=== PATIENT | female | born 1955 | race Caucasian/White ===

== ENCOUNTER 2017-12-25 09:43 | Observation (INO) ==
[2017-12-25] MEDS ORDERED: 0.9 % Sodium Chloride 1,000 ML IVC ONE ×2 (09:52→10:13)
--- NOTE | 2017-12-25 10:06 | Emergency Department Note ---
Disposition Clinical Impression: Atrial fibrillation with RVR Disposition: Admitted As Inpatient Condition: Fair Time of Disposition: 20:46 Arrhythmia/Palpitations HPI - General Stated Complaint: A-Fib Time Seen by Provider: 12/25/17 09:46 Source: patient Limitations: no limitations Nursing Notes Reviewed: Yes Vital Signs Reviewed: Yes - History of Present Illness HPI Narrative: Mrs. Nuno, a 62yo female, presents from work for evaluation of palpitations. Onset 2-3 months ago. Described as intermittent, of varying duration, nothing noted to incite or resolve them. Symptomatic as "feels like my heart is going to beat out of my chest." No associated chest pain, thoracic pain, dyspnea, light headedness, weakness, numbness, tingling. Patient was previously on metoprolol, unknown "low dose." She was then transitioned to cardizem 120mg, now cardizem 240mg (started 2d ago). Outpatient stress testing was attempted yesterday and discontinued prior to the start due to A. Fib RVR. PMH: GERD, A.Fib ROS: Pos: as above Neg: fever, chills, nausea, vomiting chest pain, abdominal pain, unusual back pain, weakness, numbness, tingling, vertigo, changes in bowel or bladder - Related Data Home Medications Medication Instructions Recorded Confirmed Alendronate Sodium [Alendronate 1 tab PO QWEEK 12/25/17 12/25/17 Sodium] Diltiazem HCl [Diltiazem ER] 240 mg PO DAILY 12/25/17 12/25/17 Omeprazole [PriLOSEC] 40 mg PO DAILY 12/25/17 12/25/17 Allergies Allergy/AdvReac Type Severity Reaction Status Date / Time No Known Allergies Allergy Verified 07/29/15 11:48 All systems ED: reviewed and negative except as stated. 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 HEENT: No facial asymmetry. Head is normocephalic and atraumatic. PERRLA, EOMI. Nasal turbinates moist and pink. Posterior pharynx without exudates or cobblestoning. Trachea midline, no palpable thyroid nodules, no thyromegaly. Cardiovascular: Heart tachycardic rate and irre rhythm without clicks, rubs, gallops, or murmurs. No JVD. PMI nondisplaced.vital radial and posteri Respiratory: Symmetric chest rise with good respiratory effort. Bilateral breath sounds are clear without wheezing, crackles, or rhonchi. Abdomen: Bowel sounds present normoactive x-4 quadrants. Abdomen is soft, nondistended, and nontender. No organomegaly noted. Musculoskeletal: pontaneously moving all Neuro: Alert and oriented x4. Sensation light touch intact. No gait ataxia Psych: Patient's affect is appropriate for situation. - General Limitations: no limitations General appearance: alert, in no apparent distress Course Course Narrative: Patient is in A. fib RVR She has a history consistent with paroxysmal atrial fibrillation which has been resist to low dose metoprolol and Cardizem. We will attempt rate rate control while in the emergency department and likely admit for continued evaluation. Patient is received 10 mg IV bolus Cardizem, her drip has been increased to 10 mg, and she has received a second 10 mg IV Cardizem bolus. Her heart rate remains in the 130s to 150s. BP systolic mid 1-teens to low 120s. I discussed the patient with on-call cardiology, Dr. Fernando, who recommended having a single 5 mg IV dose of Lopressor and subsequent admission to hospitalist for their continued evaluation. Vital Signs Temperature 98.8 F 12/25/17 09:50 Pulse Rate 157 12/25/17 09:50 Respiratory Rate 16 12/25/17 09:50 Blood Pressure 147/106 12/25/17 09:50 O2 Sat by Pulse Oximetry 97 12/25/17 09:50 Temperature 98.0 F 12/25/17 19:02 Pulse Rate 78 12/25/17 19:02 Respiratory Rate 16 12/25/17 19:02 Blood Pressure 100/59 12/25/17 19:02 O2 Sat by Pulse Oximetry 94 12/25/17 19:02 Oxygen Delivery Oxygen Delivery Room Air Arrhythmia/Palpitations - Medical Records Medical records reviewed: Yes I reviewed the patient's medical records. - Lab Data Lab results reviewed: Yes I reviewed the patient's lab results. Result diagrams: 12/25/17 10:10 12/25/17 10:10 Lab Results 12/25/17 12/25/17 12/25/17 Range/Units 10:10 10:10 10:10 WBC 7.2 (4.3-11.1) K/mcL RBC 5.36 H (3.82-4.97) M/mcL Hgb 14.7 (11.5-15.4) g/dL Hct 44.9 (35.3-44.9) % MCV 83.8 (83.0-100.0) fL MCH 27.4 L (28.0-33.3) pg MCHC 32.7 (31.6-35.5) g/dL RDW 12.9 (11.5-14.5) % Plt Count 427 H (140-400) K/mcL MPV 9.0 L (9.4-12.4) fL Immature Gran % 0.1 (0-4) % Seg Neutrophils % 57.1 % Lymphocytes % 31.4 % Monocytes % 9.1 % Eosinophils % 1.5 % Basophils % 0.8 % Neutrophils # 4.1 (1.6-8.9) K/mcL Lymphocytes # 2.3 (0.6-4.6) K/mcL Monocytes # 0.7 (0.0-1.3) K/mcL Eosinophils # 0.1 (0.0-0.6) K/mcL Basophils # 0.1 (0.0-0.2) K/mcL PT 10.2 (9.4-12.1) Seconds INR 1.0 APTT 31.9 (26.0-36.0) Seconds Sodium 138 (136-145) mEq/L Potassium 3.9 (3.5-5.1) mEq/L Chloride 107 (98-107) mEq/L Carbon Dioxide 25 (23-29) mEq/L BUN 20 (8-23) mg/dL Creatinine 0.61 (0.60-1.20) mg/dL Est GFR ( Amer) > 60 (> 60) Est GFR (Non-Af Amer) > 60 (> 60) BUN/Creatinine Ratio 33 H (6-26) Glucose 99 (70-105) mg/dL Calculated Osmolality 289 (280-300) Calcium 9.4 (8.6-10.3) mg/dL Magnesium 2.0 (1.6-2.6) mg/dL Troponin I (< 0.04) ng/mL TSH 1.402 (0.340-5.600) mcIU/mL Urine Color (Yellow) Urine Clarity (Clear) Urine pH (5.0-8.0) pH Units Ur Specific Kinder (1.010-1.025) Urine Protein (Neg-Trace) mg/dL Urine Glucose (UA) (Normal) mg/dL Urine Ketones (Negative) mg/dL Urine Blood (Negative) Urine Nitrite (Negative) Urine Bilirubin (Negative) Urine Urobilinogen (Normal) mg/dL Ur Leukocyte Esterase (Negative) Urine Microscopic RBC (0-3) per hpf Urine Microscopic WBC (0-3) per hpf Ur Squamous Epith Cells (None-Few) per lpf Urine Bacteria (None-Few) per hpf Hyaline Casts (None-Few) per lpf Ur Culture Indicated? (NO) 12/25/17 12/25/17 Range/Units 10:10 10:51 WBC (4.3-11.1) K/mcL RBC (3.82-4.97) M/mcL Hgb (11.5-15.4) g/dL Hct (35.3-44.9) % MCV (83.0-100.0) fL MCH (28.0-33.3) pg MCHC (31.6-35.5) g/dL RDW (11.5-14.5) % Plt Count (140-400) K/mcL MPV (9.4-12.4) fL Immature Gran % (0-4) % Seg Neutrophils % % Lymphocytes % % Monocytes % % Eosinophils % % Basophils % % Neutrophils # (1.6-8.9) K/mcL Lymphocytes # (0.6-4.6) K/mcL Monocytes # (0.0-1.3) K/mcL Eosinophils # (0.0-0.6) K/mcL Basophils # (0.0-0.2) K/mcL PT (9.4-12.1) Seconds INR APTT (26.0-36.0) Seconds Sodium (136-145) mEq/L Potassium (3.5-5.1) mEq/L Chloride (98-107) mEq/L Carbon Dioxide (23-29) mEq/L BUN (8-23) mg/dL Creatinine (0.60-1.20) mg/dL Est GFR ( Amer) (> 60) Est GFR (Non-Af Amer) (> 60) BUN/Creatinine Ratio (6-26) Glucose (70-105) mg/dL Calculated Osmolality (280-300) Calcium (8.6-10.3) mg/dL Magnesium (1.6-2.6) mg/dL Troponin I < 0.03 (< 0.04) ng/mL TSH (0.340-5.600) mcIU/mL Urine Color Yellow (Yellow) Urine Clarity Clear (Clear) Urine pH 7.0 (5.0-8.0) pH Units Ur Specific Kinder 1.010 (1.010-1.025) Urine Protein Negative (Neg-Trace) mg/dL Urine Glucose (UA) Normal (Normal) mg/dL Urine Ketones Negative (Negative) mg/dL Urine Blood Negative (Negative) Urine Nitrite Negative (Negative) Urine Bilirubin Negative (Negative) Urine Urobilinogen Normal (Normal) mg/dL Ur Leukocyte Esterase Small H (Negative) Urine Microscopic RBC 0-3 (0-3) per hpf Urine Microscopic WBC 3-5 H (0-3) per hpf Ur Squamous Epith Cells Many H (None-Few) per lpf Urine Bacteria None Seen (None-Few) per hpf Hyaline Casts None Seen (None-Few) per lpf Ur Culture Indicated? NO. (NO) - Radiology Data Radiology results reviewed: Yes I reviewed the patient's radiology results. - EKG Data EKG attestation: Yes I reviewed and interpreted this EKG. EKG results narrative: EKG dated 12/25/17 at 09:53 interpreted as atrial fibrillation with RVR; rate of 141. Normal axis. Nonspecific ST-T changes. Compared to previous dated 2009 showing sinus rhythm.
[2017-12-25 10:18] LABS: Basophils # 0.1 K/mcL (0.0-0.2); Basophils % 0.8 %; Eosinophils # 0.1 K/mcL (0.0-0.6); Eosinophils % 1.5 %; Hematocrit 44.9 % (35.3-44.9); Hemoglobin 14.7 g/dL (11.5-15.4); Immature Granulocytes % 0.1 % (0-4); Lymphocytes # 2.3 K/mcL (0.6-4.6); Lymphocytes % 31.4 %; Mean Corpuscular HGB Conc 32.7 g/dL (31.6-35.5); Mean Corpuscular Hemoglobin 27.4 pg (28.0-33.3); Mean Corpuscular Volume 83.8 fL (83.0-100.0); Monocytes # 0.7 K/mcL (0.0-1.3); Monocytes % 9.1 %; Neutrophils # 4.1 K/mcL (1.6-8.9); Platelet Count 427 K/mcL (140-400); Red Blood Count 5.36 M/mcL (3.82-4.97); Red Cell Distribution Width 12.9 % (11.5-14.5); Segmented Neutrophils % 57.1 %
[2017-12-25 10:21] LABS: Prothrombin Time 10.2 Seconds (9.4-12.1)
[2017-12-25 10:24] LABS: Activated Partial Thrombo Time 31.9 Seconds (26.0-36.0)
[2017-12-25 10:30] LABS: BUN/Creatinine Ratio 33 (6-26); Blood Urea Nitrogen 20 mg/dL (8-23); Calcium 9.4 mg/dL (8.6-10.3); Carbon Dioxide 25 mEq/L (23-29); Chloride 107 mEq/L (98-107); Glucose 99 mg/dL (70-105); Osmolality,Calculated 289 (280-300); Potassium 3.9 mEq/L (3.5-5.1); Sodium 138 mEq/L (136-145); eGFR For African Americans > 60 (> 60); eGFR For Non-African Americans > 60 (> 60)
[2017-12-25 10:47] LABS: Thyroid Stimulating Hormone 1.402 mcIU/mL (0.340-5.600)
--- NOTE | 2017-12-25 10:48 | Emergency Department Note ---
START Narrative - START START: I examined this patient and my medical decision-making was reviewed with the Resident Physician. I agree with the documented findings, disposition and treatment plan as described except to the extent set forth below. 62 year old female presnt to the ED with complaints of heart palpitatiosn and states that this has been going wince 1145 pm yesrerday. She has a history of atrial fibrillation and states she was diagnose din june and is currenlt on aspirin and cardizem for therapy becse she did not respond well to the BB. Patient stares she is unsure if she ever converted out of afib but it sure that she has neve been this fast in the past. PAtient states that she was checkign to cardiology and came here for further evaluation. WE have started the cardizem and she was in the rate of 150-170s and after the bolus came down to 110s, although when exitable and any exetion such as talking her rate will go abck to 140s. WE will continue with drip and looks fora infectious source, althouuh she is not complaing of fevers, nausea, or vomitting, cough, or UTI symptoms. We will admit to medicine
[2017-12-25 11:04] LABS: Bilirubin,Urine Negative (Negative); Blood,Urine Negative (Negative); Clarity,Urine Clear (Clear); Color,Urine Yellow (Yellow); Glucose,Urine (UA) Normal (Normal); Ketones,Urine Negative (Negative); Leukocyte Esterase,Urine Small (Negative); Nitrite,Urine Negative (Negative); Protein,Urine Negative (Neg-Trace); Urobilinogen,Urine Normal (Normal)
[2017-12-25 11:06] LABS: Bacteria,Urine None Seen per hpf (None-Few); Hyaline Casts,Urine None Seen per lpf (None-Few); RBC,Urine 0-3 per hpf (0-3); Squamous Epithelial Cell,Urine Many per lpf (None-Few)
[2017-12-25] MEDS ORDERED: *HR* Metoprolol 5 MG/5 ML VIAL IVP ONE (12:07)
[2017-12-25] MEDS ORDERED: *HR* Metoprolol 5 MG/5 ML VIAL IVP PRN (12:51)
[2017-12-25] MEDS ORDERED: Naloxone 0.4 MG/ML INJ IVP PRN (12:53)
[2017-12-25] MEDS ORDERED: Acetaminophen 325 MG TABLET PO PRN (12:53)
[2017-12-25] MEDS ORDERED: *HR* OxyCODONE Immed Rel 5 MG TABLET PO PRN (12:53)
[2017-12-25] MEDS ORDERED: Ondansetron 4 MG/2 ML VIAL IVP PRN (12:53)
--- NOTE | 2017-12-25 13:07 | Internal Med History&Physical ---
Date of Encounter: 12/25/17 Time of Encounter: 13:04 Assessment and Plan (1) Atrial fibrillation with RVR Current visit: Yes Status: Acute Unclear trigger, possibly reactive to right greater toe infection Continue Cardizem drip, metoprolol IV as needed Cardiology consult Omeprazole for GI prophylaxis and Lovenox for DVT prophylaxis. The patient will be admitted for observation. Full code. Time spent on this admission 40 minutes (2) Toe infection Current visit: Yes Status: Acute Right greater toe infection Start Ancef, send wound culture (3) GERD (gastroesophageal reflux disease) Current visit: Yes Status: Acute Omeprazole Qualifiers: Esophagitis presence: without esophagitis Qualified Code(s): K21.9 - Gastro -esophageal reflux disease without esophagitis (4) Osteoporosis Current visit: Yes Status: Acute Continue alendronate as an outpatient Qualifiers: Osteoporosis type: unspecified Presence of current pathological fracture: unspecified Qualified Code(s): M81.0 - Age-related osteoporosis without current pathological fracture Internal Medicine - H&P: HPI Chief complaint: Palpitations Admitted From: Emergency Dept History of present illness: Ms. Nuno is a 62 year old female with a past medical history of osteoporosis, GERD, paroxysmal atrial fibrillation not on anticoagulation who comes to the emergency room complaining of a couple weeks of having palpitations. This feeling is intermittent, the patient was complaining or having the sensation of her heart going out of her chest. At some point the patient was on metoprolol which then was switched to Cardizem, the dose was increased to 240 mg daily just 2 days ago. In the emergency room her heart rate was 157, platelets 427. Stress test was attempted yesterday but the patient could not complete it. 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 EKG shows atrial fibrillation with rapid ventricular response, chest x-ray does not show any acute cardiopulmonary disease. They are physician spoke with Dr. Fernando who recommended to continue Cardizem and increase the dose to 10 mg per hour and also give a dose of IV Lopressor. The patient's heart rate still elevated in the 120s and 140s. She denies any other symptoms other than some pain on the right greater toe, which had an infection from an ingrown nail that was drained recently. Past Med Surg Social Fam HX - Past Medical History Medical history: atrial fibrillation (Paroxysmal atrial fibrillation, not on anticoagulation), GERD, other (Osteoporosis) Psychiatric history: no psych history - Past Surgical History Surgical History: cholecystectomy, other (Last echocardiogram from August 2017 shows an ejection fraction of 60-65%) - Social History Smoking Status: Never smoker Smokeless Tobacco Status: No Alcohol use: none Drug use: none - Additional Family History Additional family history: Denies any family history Internal Medicine - H&P: Meds Alendronate Sodium [Alendronate Sodium] 1 tab PO QWEEK 12/25/17 [History] Diltiazem HCl [Diltiazem ER] 240 mg PO DAILY 12/25/17 [History] Omeprazole [PriLOSEC] 40 mg PO DAILY 12/25/17 [History] 3 Allergy/AdvReac Type Severity Reaction Status Date / Time No Known Allergies Allergy Verified 07/29/15 11:48 All Systems PM: A 10-system review of systems was performed and is negative for pertinent findings except as documented above in the HPI. Review of systems: Palpitations, other systems out of the 10 reviewed were negative - Constitutional Vitals: Temp Pulse Resp BP Pulse Ox 98.8 F 152 16 113/72 96 12/25/17 09:50 12/25/17 12:07 12/25/17 12:07 12/25/17 12:07 12/25/17 12:07 General appearance: Present: A&O X 3 - Head Head exam: Present: atraumatic, normocephalic - Eye Eye exam: Present: PERRL, conjuntiva pink, sclera anicteric Pupils: Present: PERRL - Neck Neck exam general surgery: Present: supple, trachea midline. Absent: lymphadenopathy - Respiratory Respiratory exam: Present: CTAB. Absent: accessory muscle use, rales, rhonchi, wheezes - Cardiovascular Cardiovascular exam: Present: irregular rhythm, RRR, +S1, +S2, tachycardia. Absent: diastolic murmur, gallop, rubs, systolic murmur - GI/Abdominal GI/Abdominal exam: Present: normal bowel sounds, soft, no peritoneal signs. Absent: distended, tenderness - Extremities Exam Extremities exam: Present: warm, radial pulses palpable and symmetrical. Absent : calf tenderness, cyanotic, pedal edema - Neurological Exam Neurological exam: Present: CN II-XII intact, oriented X3, no focal deficits. Absent: pronater drift, facial droop, speech deficit - Skin Skin exam: Present: dry. Absent: intact Additional comments: Right greater toe erythema/tenderness Internal Med - H&P Results - Labs CBC & Chem 7: 12/25/17 10:10 12/25/17 10:10
--- NOTE | 2017-12-25 13:42 | Cardiology Consult Note ---
<Shoshana Cooper - Last Filed: 12/25/17 14:20> Date of Encounter: 12/25/17 Time of Encounter: 13:39 Assessment and Plan (1) Atrial fibrillation with RVR Status: Acute Per cardiology: -Admitted with a.fib RVR. -Currently on cardizem drip. -Sioib0viqz score 1 (gender). On asa at home. -TTE 08/2017 LVEF 60-65%, mild bi-atrial enlargement, moderate MR, mild TR, midl PH, no segmental wall motion abnormalities. -Awaiting outpatient stress, however has not been completed due to atrial fibrillation with RVR. No previous ischemic evaluation noted. -K, Mg, TSH within normal limits. -Will resume asa. -Recommend titrate cardizem drip to keep HR less than 100. (2) Toe infection Status: Acute Per cardiology: -Toe infection. -On IV ATB -Management per primary service. Discussion w patient/family: The assessment and plan as outlined above was discussed with the patient and/or family members who expressed understanding and agreement. All questions were answered. Thank you for involving us in the care of your patient. Please call with any questions. Discussed and reviewed with . History of Present Illness Consult date: 12/25/17 Requesting physician: Wesley Pop Consult reason: a.fib RVR Chief complaint: tachycardia History of present illness: Ms. Nuno is a 62 year old female with a relevant past medical history of hyperlipidemia and PAF, not on anticoagulation. Patient originally seen during outpatient stress test and was noted to be atrial fibrillation with RVR. Patient states she can feel when she is in a.fib and feels "my heart racing." Patient denies chest pain or increased shortness of breath. Patient follows with Dr.John Mcclain for cardiology. Past Med Surg Social Fam HX - Past Medical History Attestation: Yes The following information was validated with the patient. Source: patient, old records reviewed Medical history: atrial fibrillation (Paroxysmal atrial fibrillation, not on anticoagulation), GERD, hyperlipidemia, other (Osteoporosis) Psychiatric history: no psych history - Past Surgical History Surgical History: cholecystectomy, other (Last echocardiogram from August 2017 shows an ejection fraction of 60-65%) - Social History Smoking Status: Never smoker Smokeless Tobacco Status: No Alcohol use: none Drug use: none Medications and Allergies Alendronate Sodium 1 tab PO QWEEK 12/25/17 [History] Omeprazole [PriLOSEC] 40 mg PO DAILY 12/25/17 [History] Aspirin Enteric Coated [Aspirin EC] 81 mg PO DAILY #30 tablet.dr 12/26/17 [Rx] Diltiazem HCl [Diltiazem ER] 240 mg PO DAILY #30 cap.er.deg 12/26/17 [Rx] 3 Allergy/AdvReac Type Severity Reaction Status Date / Time No Known Allergies Allergy Verified 07/29/15 11:48 All Systems Review: A 10-system review of systems was performed and is negative for pertinent findings except as documented above in the HPI. - Cardiovascular Cardiovascular: as per HPI, rapid heart rate Physical Examination Vital Signs Temperature 98.8 F 12/25/17 09:50 Pulse Rate 157 12/25/17 09:50 Respiratory Rate 16 12/25/17 09:50 Blood Pressure 147/106 12/25/17 09:50 O2 Sat by Pulse Oximetry 97 12/25/17 09:50 Temperature 98.8 F 12/25/17 09:50 Pulse Rate 152 12/25/17 12:07 Respiratory Rate 16 12/25/17 12:07 Blood Pressure 113/72 12/25/17 12:07 O2 Sat by Pulse Oximetry 96 12/25/17 12:07 Oxygen Delivery Oxygen Delivery Room Air General: Conversant, No Apparent Distress HEENT: Atraumatic, Normocephaly, Mucus Membranes Moist Neck: No JVD, Normal carotid pulses Cardiac: Other (Irregularly irregular ) Lungs: Normal Breath Sounds, No Wheeze, Rales, Rhonchi Neuro: Alert and responsive, No focal deficits noted Abdomen: Soft, Non-Tender Skin: No rashes noted on visualized skin Musculoskeletal: No Chest Wall Tenderness Extremities: No Clubbing, No Cyanosis, No Edema, Normal Pulses Results 12/25/17 10:10 12/25/17 10:10 Impressions Chest X-Ray 12/25/17 09:52 IMPRESSION: 1. No acute cardiopulmonary disease. D/ / Dread Shine MD / Dread Shine MD Interpreting Provider: Dread Shine MD Active Medications Acetaminophen (Tylenol) 650 mg PO Q6HR PRN PRN Reason: Mild Pain (1-3) Stop: 06/26/18 12:54 Enoxaparin Sodium (Lovenox) 40 mg SQ 0600 [facility] PRN Reason: Protocol Stop: 06/26/18 13:16 Diltiazem HCl 125 mg/ Sodium (Chloride) 125 mls @ 10 mls/hr IVC .[id number] JAVIER PRN Reason: 10 MG/HR Stop: 06/26/18 12:52 Cefazolin Sodium 1,000 mg/ (Sterile Water) 10 mls @ 200 mls/hr IVP Q8H JAV[facility] PRN Reason: Protocol Stop: 06/26/18 13:01 Metoprolol Tartrate (Lopressor) 5 mg IVP Q5MIN PRN PRN Reason: if HR>130 Stop: 12/28/17 12:52 Naloxone HCl (Narcan) 0.4 mg IVP Q2MIN PRN PRN Reason: Opioid Reversal Stop: 06/26/18 12:54 Omeprazole (Prilosec) 40 mg PO DAILY@0730 [facility] Stop: 06/27/18 07:31 Ondansetron HCl (Zofran) 4 mg IVP Q8HR PRN PRN Reason: Nausea And Vomiting Stop: 06/26/18 12:54 Oxycodone HCl (Roxicodone) 5 mg PO Q6HR PRN PRN Reason: Moderate Pain (4-6) Stop: 06/26/18 12:54 Laboratory Tests 12/25/17 12/25/17 12/25/17 10:10 10:10 10:10 Hgb 14.7 Potassium 3.9 Creatinine 0.61 Magnesium 2.0 Troponin I < 0.03 TSH 1.402 - Imaging and Cardiology Chest Xray: report reviewed Echo: report reviewed - EKG Interpretation EKG results cardiology: personally reviewed (ECG with atrial fibrillation with RVR.), other (Per tele at bedside now, HR 100-120s.) Consult Discharge Plan - Plan Instructions: Diltiazem (By mouth), Atrial Fibrillation (DC) Additional Instructions: F/up with EP Cardiology as scheduled Referrals: Flakito Infante MD [Primary Care Provider] - (web request 12/26/2017) Prescriptions: Aspirin Enteric Coated [Aspirin EC] 81 mg PO DAILY #30 tablet. Diltiazem HCl [Diltiazem ER] 240 mg PO DAILY #30 cap.er.deg <Ted Fernando - Last Filed: 12/26/17 18:44> Date of Encounter: 12/25/17 Time of Encounter: 19:30 - Attending Attestation I have personally performed a face to face evaluation on this patient. I have reviewed and agree with the care plan. History and Exam by me shows: CC: palpitations Pt presented for outpatient stress test, found to be in Afib with RVR, stress test cancelled, pt admitted for IV tx for A fib. She has had episodes of paroxysmal atrial fib over the last week, monitored as an outpatient with adjustments to her oral rate control medications. She reports heart racing was more severe this am, has now resolved on IV diltiazem. She denies chest pain, pressure or shortness of breath. She is resting comfortably at present. PE: reviewed above, agree with above IMP: 1. A fib with rapid ventricular response, better controlled on IV dilitiazem, will switch to po meds when heart rate controlled, increase diltiazem 180 mg cd q am to 240 mg CD q am, on Lovenox 40 mg only for DVT prophalaxis, will need stress imaging to evaluate ischemic substrate when heart rate controlled. 2. GERD - controlled on PPI 3. Hyperlipidemia - not on therapy Assessment and Plan Discussion w patient/family: The assessment and plan as outlined above was discussed with the patient and/or family members who expressed understanding and agreement. All questions were answered. Thank you for involving us in the care of your patient. Please call with any questions. History of Present Illness History of present illness: Ms. Nuno is a 62 year old female Past Med Surg Social Fam HX - Family History Father Hx Family Cardiac Disorders: Yes Hx Family Cancer: Yes All Systems Review: A 10-system review of systems was performed and is negative for pertinent findings except as documented above in the HPI. Results 12/25/17 10:10 12/26/17 04:50 Lab Results 12/26/17 12/26/17 04:50 08:54 Sodium 140 Potassium 3.9 Chloride 110 H Carbon Dioxide 26 BUN 17 Creatinine 0.67 Glucose 91 Calcium 9.0 Troponin I < 0.03
[2017-12-25] MEDS: ceFAZolin 1,000 MG in Water for inj. (sterile) 20 ML 10 ML IVP SCH ×2 (15:20→20:10)
[2017-12-25] MEDS: *HR* Enoxaparin 40 MG/0.4 ML SYRINGE SQ SCH (15:20)
[2017-12-26 05:39] LABS: BUN/Creatinine Ratio 25 (6-26); Blood Urea Nitrogen 17 mg/dL (8-23); Carbon Dioxide 26 mEq/L (23-29); Chloride 110 mEq/L (98-107); Chol/HDL Ratio 2.9 (0-4.9); Cholesterol 194 mg/dL (< 200); Glucose 91 mg/dL (70-105); HDL Cholesterol 68 mg/dL (40-59); LDL Cholesterol,Calculated 102 mg/dL (0-99); Osmolality,Calculated 291 (280-300); Potassium 3.9 mEq/L (3.5-5.1); Sodium 140 mEq/L (136-145); Triglycerides 120 mg/dL (< 150); eGFR For African Americans > 60 (> 60); eGFR For Non-African Americans > 60 (> 60)
[2017-12-26 06:18] VITALS: BP 90/60
[2017-12-26] MEDS: *HR* Enoxaparin 40 MG/0.4 ML SYRINGE SQ SCH (06:31)
[2017-12-26] MEDS: ceFAZolin 1,000 MG in Water for inj. (sterile) 20 ML 10 ML IVP SCH (06:32)
[2017-12-26] MEDS ORDERED: Diltiazem CD (24hr) 240 MG CAPSULE PO SCH (09:00)
[2017-12-26] MEDS ORDERED: Aspirin Enteric Coated 81 MG Tablet PO SCH (09:00)
[2017-12-26] MEDS ORDERED: Regadenoson 0.4 MG/5 ML SYRINGE IVP ONE (09:17)
--- NOTE | 2017-12-26 10:05 | Electrocardiograph Report ---
[address] [place] [address] Test Date: 2017-12-25 Pat Name: Mariama Nuno Department: 103 Room: 2A33 Gender: F [employer]ter: UBALDO : 1955 Requested By: Wesley Pop Order Number: [id number] Reading MD: Natalie Batista Measurements Intervals [place] Rate: 141 P: DE: 0 QRS: 11 QRSD: 86 T: 31 QT: 268 QTc: 350 Interpretive Statements ATRIAL FIBRILLATION WITH RAPID VENTRICULAR RESPONSE NONSPECIFIC ST & T-WAVE ABNORMALITY ABNORMAL RHYTHM ECG Electronically Signed On 12-26-2017 10:04:09 EST by Natalie Batista
--- NOTE | 2017-12-26 11:29 | Cardiology Progress Note ---
Date of Encounter: 12/26/17 Time of Encounter: 10:00 Assessment and Plan (1) Atrial fibrillation with RVR Current Visit: Yes Status: Acute Hx of PAF, patient reports diagnosed in June 2017, previously controlled on oral CCB. Reports recent increased stress due to unexpected of family member, has had recurrent palpitations since. Admitted with ashwetha RVR. Converted to NSR this AM, now on po cardizem 240 mg daily. Bomor2xlrd score 1 (gender). On asa at home. TTE 08/2017 LVEF 60-65%, mild bi-atrial enlargement, moderate MR, mild TR, midl PH, no segmental wall motion abnormalities. Nuclear stress test completed this AM. Further recommendations to follow. Consider antiarrhythmic therapy in future with recurrent episodes. Discussion w patient/family: The assessment and plan as outlined above was discussed with the patient and/or family members who expressed understanding and agreement. All questions were answered. Thank you for involving us in the care of your patient. Please call with any questions. The patient will be discussed and reviewed with Dr. Fernando; changes to be made accordingly. Subjective Principal diagnosis: Afib with RVR Interval history: Seen and examined. Converted to NSR this AM. Stress test today. No reported symptoms or events overnight. Objective General: Conversant HEENT: Atraumatic, Normocephaly Neck: No JVD, Normal carotid pulses Cardiac: Reg Rate and Rhythm, Normal S1 and S2, No Murmur Lungs: Normal Breath Sounds, No Wheeze, Rales, Rhonchi Neuro: Alert and responsive, No focal deficits noted Abdomen: Soft, Non-Tender Skin: No rashes noted on visualized skin Musculoskeletal: No Chest Wall Tenderness Extremities: No Clubbing, No Cyanosis, No Edema, Normal Pulses Results 12/25/17 10:10 12/26/17 04:50 Lab Results 12/26/17 12/26/17 04:50 08:54 Sodium 140 Potassium 3.9 Chloride 110 H Carbon Dioxide 26 BUN 17 Creatinine 0.67 Glucose 91 Calcium 9.0 Troponin I < 0.03 Active Medications Acetaminophen (Tylenol) 650 mg PO Q6HR PRN PRN Reason: Mild Pain (1-3) Stop: 06/26/18 12:54 Last Admin: 12/25/17 19:39 Dose: 325 mg Aspirin (Aspirin Ec) 81 mg PO DAILY JAVIER Stop: 06/27/18 09:01 Last Admin: 12/26/17 09:18 Dose: 81 mg Diltiazem HCl (Cardizem Cd) 240 mg PO DAILY [facility] Stop: 06/27/18 09:01 Last Admin: 12/26/17 09:18 Dose: 240 mg Enoxaparin Sodium (Lovenox) 40 mg SQ 0600 JAVIER PRN Reason: Protocol Stop: 06/26/18 13:16 Last Admin: 12/26/17 06:31 Dose: 40 mg Metoprolol Tartrate (Lopressor) 5 mg IVP Q5MIN PRN PRN Reason: if HR>130 Stop: 12/28/17 12:52 Last Admin: 12/25/17 19:40 Dose: 5 mg Naloxone HCl (Narcan) 0.4 mg IVP Q2MIN PRN PRN Reason: Opioid Reversal Stop: 06/26/18 12:54 Omeprazole (Prilosec) 40 mg PO DAILY@0730 [facility] Stop: 06/27/18 07:31 Last Admin: 12/26/17 06:32 Dose: 40 mg Ondansetron HCl (Zofran) 4 mg IVP Q8HR PRN PRN Reason: Nausea And Vomiting Stop: 06/26/18 12:54 Oxycodone HCl (Roxicodone) 5 mg PO Q6HR PRN PRN Reason: Moderate Pain (4-6) Stop: 06/26/18 12:54 - Imaging and Cardiology Stress Test: pending Echo: report reviewed - EKG Interpretation EKG results cardiology: personally reviewed Consult Discharge Plan - Plan Instructions: Atrial Fibrillation (DC) Referrals: Flakito Infante MD [Primary Care Provider] -
--- NOTE | 2017-12-26 16:52 | Discharge Summary ---
Date of Encounter: 12/26/17 Time of Encounter: 16:50 - Discharge Diagnosis (1) Atrial fibrillation with RVR Priority: Primary Status: Acute (2) Toe infection Priority: Primary Status: Ruled-out (3) GERD (gastroesophageal reflux disease) Priority: Secondary Status: Chronic Qualifiers: Esophagitis presence: without esophagitis Qualified Code(s): K21.9 - Gastro -esophageal reflux disease without esophagitis (4) Osteoporosis Priority: Secondary Status: Chronic Qualifiers: Osteoporosis type: unspecified Presence of current pathological fracture: unspecified Qualified Code(s): M81.0 - Age-related osteoporosis without current pathological fracture - Discharge Medications Prescriptions: Aspirin Enteric Coated [Aspirin EC] 81 mg PO DAILY #30 tablet. Diltiazem HCl [Diltiazem ER] 240 mg PO DAILY #30 cap.er.deg Home Medications: Alendronate Sodium 1 tab PO QWEEK 12/25/17 [History] Omeprazole [PriLOSEC] 40 mg PO DAILY 12/25/17 [History] Aspirin Enteric Coated [Aspirin EC] 81 mg PO DAILY #30 tablet. 12/26/17 [Rx] Diltiazem HCl [Diltiazem ER] 240 mg PO DAILY #30 cap.er.deg 12/26/17 [Rx] Allergies/Adverse Reactions: 3 Allergy/AdvReac Type Severity Reaction Status Date / Time No Known Allergies Allergy Verified 07/29/15 11:48 Procedures/tests Complete & Pending: Procedures Performed prior 72 hours Category Date Time Status NM tracy perf SPECT multi [NM] Routine Exams 12/26/17 07:39 Taken EKG [ECG 12 lead ECG] [ECG] Stat Y 12/26/17 06:05 Ordered SP pharm nuclear stress Routine Y 12/26/17 07:38 Completed Date of admission: 12/25/17 12:37 Primary care physician: Flakito Infante MD Discharging clinician: Trina Correia Anticipated date of discharge: 12/26/17 - Patient Status Disposition: Home, Self-Care Condition: Good Functional capacity at discharge: independent ambulation Overall status at discharge: patient is progressing back to baseline - Discharge Instructions Instructions: Diltiazem (By mouth), Atrial Fibrillation (DC) Follow Up With: Flakito Infante MD [Primary Care Provider] - (web request 12/26/2017) Forms: ED Satisfaction Letter Additional Instructions: F/up with EP Cardiology as scheduled - Diet and Activity Activity: resume usual activities as tolerated Diet: advance to your usual diet, low fat, low cholesterol, low salt diet Hospital course: Ms. Nuno is a 62 year old female with history of atrial fibrillation, who was admitted with tachycardia. Patient presented to outpatient stress testing and was noted to have atrial fibrillation with rapid ventricular response and was referred to the emergency room. She was started on IV Cardizem drip and her home dose of oral Cardizem CD has been increased to 240 mg recently, which was continued during this hospitalization. Patient was evaluated by cardiology, completed her nuclear stress test after appropriate heart rate controlled. Stress test was negative for ischemia or infarct. She was deemed medically stable for discharge with outpatient EP cardiology follow-up to discuss initiation of rhythm control versus continuation of rate control. Patient is in agreement with this plan and is being discharged in a stable condition. - Time Spent with Patient Total time spent providing and/or coordinating discharge services: Greater than 30 minutes (40 min) - Constitutional Vitals: Temp Pulse Resp BP Pulse Ox 97.9 F 61 15 90/60 93 12/26/17 06:17 12/26/17 06:17 12/26/17 06:17 12/26/17 06:17 12/26/17 06:17 General appearance: Present: A&O X 3, answers questions appropriately - Cardiovascular Cardiovascular exam: Present: RRR, +S1, +S2. Absent: diastolic murmur, gallop, rubs, systolic murmur
--- NOTE | 2017-12-29 17:01 | Electrocardiograph Report ---
[address] [place], [place] [address] Test Date: 2017-12-26 Pat Name: Mariama uNno Department: 112 Room: 2A Gender: F Hand Mixer: [facility] : 1955 Requested By: Juan Luis Templeton Order Number: [id number] Reading MD: Rod Mcclain Measurements Intervals [place] Rate: 58 P: 7 AL: 136 QRS: 29 QRSD: 79 T: 31 QT: 414 QTc: 411 Interpretive Statements SINUS BRADYCARDIA Electronically Signed On 12-29-2017 17:00:05 EST by Rod Mcclain
== END 2017-12-26 17:25 | disposition home or self-care (01) ==
LOC: EMEROO 09:43 → 2ANU 09:43 → SUATTDRO 12:37 → 2ANU 15:00
PROVIDERS: ADMIT Internal Medicine; ATTEND Internal Medicine

== ENCOUNTER 2018-01-13 16:20 | Inpatient (IN) ==
[2018-01-13] MEDS ORDERED: 0.9 % Sodium Chloride 1,000 ML IVC ONE (16:50)
[2018-01-13 17:04] LABS: Basophils % 0.5 %; Eosinophils # 0.1 K/mcL (0.0-0.6); Hematocrit 44.7 % (35.3-44.9); Hemoglobin 14.5 g/dL (11.5-15.4); Immature Granulocytes % 0.1 % (0-4); Lymphocytes # 2.4 K/mcL (0.6-4.6); Lymphocytes % 31.6 %; Mean Corpuscular HGB Conc 32.4 g/dL (31.6-35.5); Mean Corpuscular Hemoglobin 27.3 pg (28.0-33.3); Monocytes # 0.6 K/mcL (0.0-1.3); Monocytes % 7.9 %; Neutrophils # 4.6 K/mcL (1.6-8.9); Platelet Count 402 K/mcL (140-400); Red Blood Count 5.32 M/mcL (3.82-4.97); Red Cell Distribution Width 12.7 % (11.5-14.5); Segmented Neutrophils % 58.9 %
[2018-01-13 17:12] LABS: Prothrombin Time 10.4 Seconds (9.4-12.1)
[2018-01-13 17:15] LABS: Activated Partial Thrombo Time 33.6 Seconds (26.0-36.0)
[2018-01-13 17:40] LABS: Thyroid Stimulating Hormone 1.414 mcIU/mL (0.340-5.600)
[2018-01-13 17:51] LABS: BUN/Creatinine Ratio 24 (6-26); Blood Urea Nitrogen 15 mg/dL (8-23); Calcium 9.9 mg/dL (8.6-10.3); Carbon Dioxide 22 mEq/L (23-29); Chloride 108 mEq/L (98-107); Glucose 95 mg/dL (70-105); Osmolality,Calculated 289 (280-300); Potassium 3.8 mEq/L (3.5-5.1); Sodium 139 mEq/L (136-145); eGFR For African Americans > 60 (> 60); eGFR For Non-African Americans > 60 (> 60)
--- NOTE | 2018-01-13 18:07 | Emergency Department Note ---
Disposition Clinical Impression: Atrial fibrillation with RVR Disposition: Admitted As Inpatient Condition: Good Arrhythmia/Palpitations HPI - General Chief Complaint: ED Arrhythmia/Palpitations Stated Complaint: CP Time Seen by Provider: 01/13/18 16:50 Source: patient, family Limitations: no limitations Nursing Notes Reviewed: Yes Vital Signs Reviewed: Yes - History of Present Illness HPI Narrative: Patient presents today for evaluation of A. fib RVR. Patient has a history of A. fib RVR and can tell when she is having palpitations and abnormal heart rate. Patient tried to schedule an appointment with Dr. Mcclain today to have this evaluated. She was sent from his office to the emergency room for further management. Patient describes a pain across her shoulders and neck which she describes as she had worked out too much. Patient has no other pain or shortness of breath. Patient has had some occasional dizziness with standing or exertion. On exam her heart rate ranges between 150 and 170. Her blood pressures systolically 140. She is otherwise stable. Patient's chart shows that she has had previous admissions for this. Her Cardizem was increased. She states that she was going to be placed on a rhythm control medication if this did not work. - Related Data Home Medications Medication Instructions Recorded Confirmed Alendronate Sodium 70 mg PO TU 12/25/17 01/13/18 Omeprazole [PriLOSEC] 40 mg PO DAILY 12/25/17 01/13/18 Cholecalciferol (D-3) [Vitamin D] 2,000 unit PO DAILY 01/13/18 01/13/18 Vitamin B Complex [B Complex] 1 each PO DAILY 01/13/18 01/13/18 Vitamin E Acid Succinate [Vitamin 400 unit PO DAILY 01/13/18 01/13/18 E] Previous Rx's Medication Instructions Recorded Aspirin Enteric Coated [Aspirin EC] 81 mg PO DAILY #30 tablet. 12/26/17 Diltiazem HCl [Diltiazem ER] 240 mg PO DAILY #30 cap.er.deg 12/26/17 Allergies Allergy/AdvReac Type Severity Reaction Status Date / Time No Known Allergies Allergy Verified 01/13/18 16:24 Review of Systems: CONSTITUTIONAL: No weight loss, fever, chills, weakness or fatigue. HEENT: Eyes: No visual changes. Ears, Nose, Throat: No hearing loss, difficulty talking or unable to swallow. SKIN: No rash or itching. CARDIOVASCULAR: Palpitations RESPIRATORY: No shortness of breath, cough or sputum. GASTROINTESTINAL: No anorexia, nausea, vomiting or diarrhea. No abdominal pain or blood. GENITOURINARY: No burning on urination or hematuria. NEUROLOGICAL: Dizziness No headache, syncope, paralysis, ataxia, numbness or tingling in the extremities. No change in bowel or bladder control. MUSCULOSKELETAL: No muscle pain, back pain, joint pain or stiffness. Past Medical History - Past Medical History Medical history: Reports: atrial fibrillation, GERD Surgical history: Reports: cholecystectomy Psychiatric history: Reports: no psych history PLASTIC WORKER history: Reports: no PLASTIC WORKER history - Social History Smoking Status: Never smoker Smokeless Tobacco Status: No Alcohol use: Reports: none Drug use: Reports: none Physical Exam General: Well appearing, nontoxic, no acute distress Head: Normocephalic Atraumatic Eyes: PERRL, EOMI ENT: Airway patent, no stridor Neck: supple, no meningismus Chest: Lungs clear to auscultation bilateral Cardiac: Regular rate and rhythm, no murmurs, rubs or gallops Abdomen: soft, nontender, nondistended; no guarding, rebound, or tenderness to percussion Musculoskeletal: Calves symmetric, nontender, no palpable cord Skin: No rash, normal skin tone Neuro: Alert and Oriented to person, place, and time; No focal deficit - General Limitations: no limitations General appearance: alert, in no apparent distress Course - Reevaluation(s) Reevaluation #1: Patient was given Cardizem bolus as well as drip. Patient's rate between 90 and 100. Patient remains asymptomatic. Patient will be admitted for further management. - Consultations Consultation #1: Discussed with cardiology. Dr. Rod Mcclain. He was evaluated patient for possible Rythmol. Consultation #2: Discussed with hospitalist. Patient accepted for admission. Vital Signs Temperature 98.1 F 01/13/18 16:24 Pulse Rate 114 01/13/18 16:24 Respiratory Rate 16 01/13/18 16:24 Blood Pressure 124/79 01/13/18 16:24 O2 Sat by Pulse Oximetry 97 01/13/18 16:24 Temperature 97.9 F 01/13/18 21:39 Pulse Rate 151 01/13/18 21:39 Respiratory Rate 16 01/13/18 21:39 Blood Pressure 109/75 01/13/18 21:39 O2 Sat by Pulse Oximetry 95 01/13/18 21:39 Oxygen Delivery Oxygen Delivery Room Air Arrhythmia/Palpitations - Medical Records Medical records reviewed: Yes I reviewed the patient's medical records. - Lab Data Lab results reviewed: Yes I reviewed the patient's lab results. Result diagrams: 01/13/18 16:55 01/13/18 16:55 Lab Results 01/13/18 01/13/18 01/13/18 Range/Units 16:55 16:55 16:55 WBC 7.7 (4.3-11.1) K/mcL RBC 5.32 H (3.82-4.97) M/mcL Hgb 14.5 (11.5-15.4) g/dL Hct 44.7 (35.3-44.9) % MCV 84.0 (83.0-100.0) fL MCH 27.3 L (28.0-33.3) pg MCHC 32.4 (31.6-35.5) g/dL RDW 12.7 (11.5-14.5) % Plt Count 402 H (140-400) K/mcL MPV 9.0 L (9.4-12.4) fL Immature Gran % 0.1 (0-4) % Seg Neutrophils % 58.9 % Lymphocytes % 31.6 % Monocytes % 7.9 % Eosinophils % 1.0 % Basophils % 0.5 % Neutrophils # 4.6 (1.6-8.9) K/mcL Lymphocytes # 2.4 (0.6-4.6) K/mcL Monocytes # 0.6 (0.0-1.3) K/mcL Eosinophils # 0.1 (0.0-0.6) K/mcL Basophils # 0.0 (0.0-0.2) K/mcL PT 10.4 (9.4-12.1) Seconds INR 1.0 APTT 33.6 (26.0-36.0) Seconds Sodium 139 (136-145) mEq/L Potassium 3.8 (3.5-5.1) mEq/L Chloride 108 H (98-107) mEq/L Carbon Dioxide 22 L (23-29) mEq/L BUN 15 (8-23) mg/dL Creatinine 0.62 (0.60-1.20) mg/dL Est GFR ( Amer) > 60 (> 60) Est GFR (Non-Af Amer) > 60 (> 60) BUN/Creatinine Ratio 24 (6-26) Glucose 95 (70-105) mg/dL Calculated Osmolality 289 (280-300) Calcium 9.9 (8.6-10.3) mg/dL Troponin I (< 0.04) ng/mL TSH 1.414 (0.340-5.600) mcIU/mL 01/13/18 Range/Units 16:55 WBC (4.3-11.1) K/mcL RBC (3.82-4.97) M/mcL Hgb (11.5-15.4) g/dL Hct (35.3-44.9) % MCV (83.0-100.0) fL MCH (28.0-33.3) pg MCHC (31.6-35.5) g/dL RDW (11.5-14.5) % Plt Count (140-400) K/mcL MPV (9.4-12.4) fL Immature Gran % (0-4) % Seg Neutrophils % % Lymphocytes % % Monocytes % % Eosinophils % % Basophils % % Neutrophils # (1.6-8.9) K/mcL Lymphocytes # (0.6-4.6) K/mcL Monocytes # (0.0-1.3) K/mcL Eosinophils # (0.0-0.6) K/mcL Basophils # (0.0-0.2) K/mcL PT (9.4-12.1) Seconds INR APTT (26.0-36.0) Seconds Sodium (136-145) mEq/L Potassium (3.5-5.1) mEq/L Chloride (98-107) mEq/L Carbon Dioxide (23-29) mEq/L BUN (8-23) mg/dL Creatinine (0.60-1.20) mg/dL Est GFR ( Amer) (> 60) Est GFR (Non-Af Amer) (> 60) BUN/Creatinine Ratio (6-26) Glucose (70-105) mg/dL Calculated Osmolality (280-300) Calcium (8.6-10.3) mg/dL Troponin I < 0.03 (< 0.04) ng/mL TSH (0.340-5.600) mcIU/mL - Radiology Data Radiology results reviewed: Yes I reviewed the patient's radiology results. - EKG Data EKG attestation: Yes I reviewed and interpreted this EKG. EKG results narrative: EKG shows atrial fib with RVR. Ventricular rate of 148. No ST elevation or depression. Attestation Statement - Attestation Attestation: I examined this patient and my medical decision-making was reviewed with the Resident Physician. I agree with the documented findings, disposition and treatment plan as described except to the extent set forth below. Findings consistent with A. fib with RVR. We will admit for Rythmol infusion per cardiology request. Patient was stabilized on Cardizem. Cardiology is aware of this. Patient received dose of Lovenox. Patient was stable at time of admission.
[2018-01-13] MEDS ORDERED: Acetaminophen/Butalbital/CaffeineTABLET PO ONE (20:41)
[2018-01-13] MEDS ORDERED: Naloxone 0.4 MG/ML INJ IVP PRN (20:59)
--- NOTE | 2018-01-13 21:38 | Internal Med History&Physical ---
Date of Encounter: 01/13/18 Time of Encounter: 20:00 Assessment and Plan (1) DVT prophylaxis Current visit: Yes Status: Acute Heparin SC (2) Atrial fibrillation with RVR Current visit: Yes Status: Acute Pt has hx of PAF. Has A Fib RVR - Cont cardiac monitoring. - Cardizem drip, titrate to get HR control, may switch to PO after HR is controlled. - Consult cardiology, may consider rhythm control. Internal Medicine - H&P: HPI Chief complaint: Palpitation Admitted From: Home Plans for Post Hospital Care: Home History of present illness: Ms. Nuno is a 62 year old female with hx of PAF present to ER for palpitation. Pt has symptomatic A Fib and she knows that she has A Fib again. Pt follow up with Dr Mcclain as outpatient. Since Thursday she has palpitation which was improved on Thursday. Today, she feels palpitation again. Pt denies chest pain, or SOB. She has mild nausea and headache, no vomiting. Pt was seen in Dr Mcclain' s office and was advised to come to ER. In ER, EKG show A Flutter with HR 159. Pt was started cardizem drip and was admitted for further management. Past Med Surg Social Fam HX - Past Medical History Medical history: atrial fibrillation, GERD Psychiatric history: no psych history - Past Surgical History Surgical History: cholecystectomy - Social History Smoking Status: Never smoker Smokeless Tobacco Status: No Alcohol use: none Drug use: none - Family History Father Hx Family Cardiac Disorders: Yes Hx Family Cancer: Yes Internal Medicine - H&P: Meds Alendronate Sodium 70 mg PO TU 12/25/17 [History] Omeprazole [PriLOSEC] 40 mg PO DAILY 12/25/17 [History] Aspirin Enteric Coated [Aspirin EC] 81 mg PO DAILY #30 tablet. 12/26/17 [Rx] Diltiazem HCl [Diltiazem ER] 240 mg PO DAILY #30 cap.er.deg 12/26/17 [Rx] Cholecalciferol (D-3) [Vitamin D] 2,000 unit PO DAILY 01/13/18 [History] Vitamin B Complex [B Complex] 1 each PO DAILY 01/13/18 [History] Vitamin E Acid Succinate [Vitamin E] 400 unit PO DAILY 01/13/18 [History] 3 Allergy/AdvReac Type Severity Reaction Status Date / Time No Known Allergies Allergy Verified 01/13/18 16:24 All Systems PM: A 10-system review of systems was performed and is negative for pertinent findings except as documented above in the HPI. - Constitutional Vitals: Temp Pulse Resp BP Pulse Ox 98.1 F 96 16 115/85 96 01/13/18 16:24 01/13/18 17:08 01/13/18 20:52 01/13/18 20:52 01/13/18 17:08 General appearance: Present: A&O X 3, no acute distress, answers questions appropriately - Head Head exam: Present: atraumatic, normocephalic - Eye Eye exam: Present: PERRL, conjuntiva pink, sclera anicteric Pupils: Present: PERRL - Neck Neck exam general surgery: Present: supple, trachea midline. Absent: lymphadenopathy - Respiratory Respiratory exam: Present: CTAB. Absent: accessory muscle use, rales, rhonchi, wheezes - Cardiovascular Cardiovascular exam: Present: irregular rhythm, +S1, +S2, tachycardia. Absent: diastolic murmur, gallop, rubs, systolic murmur - GI/Abdominal GI/Abdominal exam: Present: normal bowel sounds, soft, no peritoneal signs. Absent: distended, tenderness - Extremities Exam Extremities exam: Present: warm, radial pulses palpable and symmetrical. Absent : calf tenderness, cyanotic, pedal edema - Neurological Exam Neurological exam: Present: CN II-XII intact, oriented X3, no focal deficits. Absent: pronater drift, facial droop, speech deficit - Skin Skin exam: Present: dry, intact Internal Med - H&P Results - Labs CBC & Chem 7: 01/13/18 16:55 01/13/18 16:55 - EKG Data -: EKG Interpreted by Myself Rate: tachycardia (A Fib RVR)
[2018-01-14] MEDS ORDERED: 0.9 % Sodium Chloride 1,000 ML ONE (00:13)
[2018-01-14] MEDS ORDERED: 0.9 % Sodium Chloride 500 ML IVC ONE (00:33)
[2018-01-14 04:04] LABS: Basophils % 0.5 %; Eosinophils # 0.1 K/mcL (0.0-0.6); Eosinophils % 1.6 %; Hematocrit 40.4 % (35.3-44.9); Hemoglobin 13.3 g/dL (11.5-15.4); Immature Granulocytes % 0.2 % (0-4); Lymphocytes # 2.9 K/mcL (0.6-4.6); Mean Corpuscular HGB Conc 32.9 g/dL (31.6-35.5); Mean Corpuscular Hemoglobin 27.4 pg (28.0-33.3); Mean Corpuscular Volume 83.3 fL (83.0-100.0); Mean Platelet Volume 9.1 fL (9.4-12.4); Monocytes # 0.8 K/mcL (0.0-1.3); Monocytes % 9.8 %; Neutrophils # 4.3 K/mcL (1.6-8.9); Platelet Count 377 K/mcL (140-400); Red Blood Count 4.85 M/mcL (3.82-4.97); Red Cell Distribution Width 13.1 % (11.5-14.5); Segmented Neutrophils % 52.9 %
[2018-01-14 04:36] LABS: BUN/Creatinine Ratio 20 (6-26); Blood Urea Nitrogen 13 mg/dL (8-23); Carbon Dioxide 22 mEq/L (23-29); Chloride 111 mEq/L (98-107); Glucose 106 mg/dL (70-105); Magnesium 2.2 mg/dL (1.6-2.6); Osmolality,Calculated 291 (280-300); Potassium 3.5 mEq/L (3.5-5.1); Sodium 140 mEq/L (136-145); eGFR For African Americans > 60 (> 60); eGFR For Non-African Americans > 60 (> 60)
[2018-01-14] MEDS: *HR* Heparin 5,000 UNIT/ML VIAL SQ SCH ×2 (04:55→17:19)
[2018-01-14] MEDS ORDERED: Acetaminophen 325 MG TABLET PO ONE (04:59)
[2018-01-14] MEDS: Aspirin Enteric Coated 81 MG Tablet PO SCH (07:46)
[2018-01-14] MEDS: Vitamin B Complex/Vit C/Vit E 1 EACH TABLET PO SCH (07:46)
[2018-01-14] MEDS: Cholecalciferol (D-3) 1,000 UNIT TABLET PO SCH (07:47)
--- NOTE | 2018-01-14 08:19 | Internal Med Progress Note ---
Date of Encounter: 01/14/18 Time of Encounter: 08:17 - Assessment and plan (1) Atrial fibrillation with RVR Current Visit: Yes Status: Acute Assessment and plan: To be seen by cardiology for possible rhythm control agent. Currently in sinus. Low [id number] score. Keep on ASA for now. Leave other anticoags to cardiology. stop cardizem drip and place on oral cardizem home dose. (2) GERD (gastroesophageal reflux disease) Current Visit: No Status: Chronic Assessment and plan: Continue PPI Qualifiers: Esophagitis presence: without esophagitis Qualified Code(s): K21.9 - Gastro -esophageal reflux disease without esophagitis (3) DVT prophylaxis Current Visit: Yes Status: Acute Assessment and plan: Heparin subcutaneous - Subjective Interval history: Patient was seen and examined. Admitted with atrial fibrillation without ventricular response yesterday. She was put on a Cardizem drip and converted to sinus. Currently in sinus and feels well. Patient has been dealing with A. fib on and off at home. Was recently hospitalized and discharged for similar reasons. 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 Has been afebrile. - Constitutional Vitals: Temp Pulse Resp BP Pulse Ox 98.2 F 68 16 103/66 95 01/14/18 07:07 01/14/18 07:07 01/14/18 07:07 01/14/18 07:07 01/14/18 07:07 General appearance: Present: A&O X 3, no acute distress, answers questions appropriately Exam: GEN: NAD CVS: RRR. S1, S2, No m/r/g RESP: CTAB ABD: Soft, NT, ND, +BS EXT: No edema. 2+ DP. No rashes NEURO: Nonfocal Internal Medicine: Result - Labs CBC & Chem 7: 01/14/18 03:41 01/14/18 03:41 Labs: Short CBC 01/14/18 Range/Units 03:41 WBC 8.2 (4.3-11.1) K/mcL Hgb 13.3 (11.5-15.4) g/dL Hct 40.4 (35.3-44.9) % Plt Count 377 (140-400) K/mcL Neutrophils # 4.3 (1.6-8.9) K/mcL BMP 01/14/18 03:41 Sodium 140 Potassium 3.5 Chloride 111 H Carbon Dioxide 22 L BUN 13 Creatinine 0.64 Glucose 106 H Calcium 9.0 - ABG Interpretation ABG results: PT/INR, D-dimer PT 10.4 Seconds (9.4-12.1) 01/13/18 16:55 Consult Discharge Plan - Plan Referrals: Flakito Infante MD [Primary Care Provider] -
[2018-01-14] MEDS ORDERED: DILTIAZEM HCL 240 MG PO SCH (09:00)
[2018-01-14] MEDS: Diltiazem CD (24hr) 240 MG CAPSULE PO SCH (09:08)
--- NOTE | 2018-01-14 11:11 | Electrophysiology Consult Note ---
Date of Encounter: 01/14/18 Time of Encounter: 10:30 Assessment and Plan (1) PAF (paroxysmal atrial fibrillation) Current Visit: Yes Status: Acute Hx of PAF, diagnosed 2016, pt. reports symptoms for at least 2 years. Has been on betablocker, now CCB. Presented with Afib with RVR, started on cardizem gtt, now NSR. Negative nuclear stress 12/27/16, normal LVEF per TTE 08/2017. Given recurrent admissions for PAF, and patient is symptomatic (fatigue), recommend antiarrhythmic therapy. Discussed with Dr. Rod Mcclain, will start Rythmol 150 mg Q8H. Will require inpatient monitoring for at least 5 doses. Daily ECGs. Continuous telemetry monitoring. Baseline EC01/13/18 (afib) HR 148 QRS 116 ms QT/QTc 353,438 CHA2Ds Vasc=1 (female). Continue ASA for AC. Discussion w patient/family: The assessment and plan as outlined above was discussed with the patient and/or family members who expressed understanding and agreement. All questions were answered. Thank you for involving us in the care of your patient. Please call with any questions. The patient was discussed and reviewed with Dr. Rod Mcclain. Changes to be made accordingly. History of Present Illness Consult date: 01/14/18 Requesting physician: Shankar Castanon Consult reason: PAF Chief complaint: Palpitations, afib History of present illness: Ms. Nuno is a 62 year old female with PMHx significant for PAF who presented to the ED with complaints of intermitted palpitations over the past several weeks. Episodes lasts minutes to hours, nothing seems to trigger. Recent diagnosis of atrial fibrillation last fall, found incidentally by PCP. Patient reports intermittent palpitations over the past 2 years. Has been on betablocker , now on Cardizem for rate control. Recent hospitalization for Afib with RVR, cardizem was increased. She was at outpatient appt with Dr. Mcclain yesterday when she was found to be in atrial fibrillation with RVR and was recommended ED evaluation. She was started on a cardizem gtt and then converted to NSR. Prior CV testing: Regadenoson nuclear 12/26/17: pharmacologic stress ECG negative for ischemia at level of heart rate achieved, gated EF=69% TTE 08/2017: LVEF 60-65%, normal RV structure and function, mildly dilated LA /RA, moderate MR, mild TR, mild PHH, est RVSP=36 mmHg, normal wall motion. Past Med Surg Social Fam HX - Past Medical History Attestation: Yes The following information was validated with the patient. Source: patient Medical history: atrial fibrillation, GERD Psychiatric history: no psych history - Past Surgical History Surgical History: cholecystectomy - Social History Smoking Status: Never smoker Smokeless Tobacco Status: No Alcohol use: none Drug use: none - Family History Father Living Status: Age at : 62 Hx Family Cardiac Disorders: Yes Hx Family Respiratory Disorders: Yes (lung disease) Hx Family Cancer: Yes Mother Living Status: Age at : 84 Medications and Allergies Alendronate Sodium 70 mg PO TU 12/25/17 [History] Omeprazole [PriLOSEC] 40 mg PO DAILY 12/25/17 [History] Aspirin Enteric Coated [Aspirin EC] 81 mg PO DAILY #30 tablet.dr 12/26/17 [Rx] Diltiazem HCl [Diltiazem ER] 240 mg PO DAILY #30 cap.er.deg 12/26/17 [Rx] Cholecalciferol (D-3) [Vitamin D] 2,000 unit PO DAILY 01/13/18 [History] Vitamin B Complex [B Complex] 1 each PO DAILY 01/13/18 [History] Vitamin E Acid Succinate [Vitamin E] 400 unit PO DAILY 01/13/18 [History] 3 Allergy/AdvReac Type Severity Reaction Status Date / Time No Known Allergies Allergy Verified 01/13/18 16:24 All Systems Review: A 10-system review of systems was performed and is negative for pertinent findings except as documented above in the HPI. - Cardiovascular Cardiovascular: as per HPI Physical Examination Vital Signs, Last 4 Hours Temp Pulse Resp BP Pulse Ox 01/14/18 07:07 98.2 F 68 16 103/66 95 General: Conversant, No Apparent Distress HEENT: Atraumatic, Normocephaly, Mucus Membranes Moist Neck: No JVD, Normal carotid pulses Cardiac: Reg Rate and Rhythm, Normal S1 and S2, No Murmur Lungs: Normal Breath Sounds, No Wheeze, Rales, Rhonchi Neuro: Alert and responsive, No focal deficits noted Abdomen: Soft, Non-Tender Skin: No rashes noted on visualized skin Musculoskeletal: No Chest Wall Tenderness Extremities: No Clubbing, No Cyanosis, No Edema, Normal Pulses Results 01/14/18 03:41 01/14/18 03:41 Lab Results 01/14/18 01/14/18 03:41 03:41 WBC 8.2 Hgb 13.3 Hct 40.4 Plt Count 377 Sodium 140 Potassium 3.5 Chloride 111 H Carbon Dioxide 22 L BUN 13 Creatinine 0.64 Glucose 106 H Calcium 9.0 Magnesium 2.2 Active Medications Aspirin (Aspirin Ec) 81 mg PO DAILY [facility] Stop: 07/16/18 09:01 Last Admin: 01/14/18 07:46 Dose: 81 mg Diltiazem HCl (Cardizem Cd) 240 mg PO DAILY [facility] Stop: 07/16/18 09:01 Last Admin: 01/14/18 09:08 Dose: 240 mg Heparin Sodium (Porcine) (Heparin) 5,000 unit SQ Q12HCO [facility] Stop: 07/16/18 06:01 Last Admin: 01/14/18 04:55 Dose: 5,000 unit Naloxone HCl (Narcan) 0.4 mg IVP Q2MIN PRN PRN Reason: SEE COMMENTS Stop: 07/15/18 21:00 Omeprazole (Prilosec) 40 mg PO DAILY [facility] Stop: 07/16/18 09:01 Last Admin: 01/14/18 07:47 Dose: 40 mg Propafenone HCl (Rhythmol) 150 mg PO Q8H [facility] Stop: 07/16/18 14:01 Vitamin B Complex/Vit C/Vit E (Stresstab) 1 each PO DAILY [facility] Stop: 07/16/18 09:01 Last Admin: 01/14/18 07:46 Dose: 1 each Vitamin D (Vitamin D) 1,000 unit PO DAILY [facility] Stop: 07/16/18 09:01 Last Admin: 01/14/18 07:47 Dose: 1,000 unit Vitamin E (Vitamin E) 400 unit PO DAILY [facility] Stop: 07/16/18 09:01 Last Admin: 01/14/18 07:47 Dose: 400 unit - Imaging and Cardiology Stress Test: report reviewed Echo: report reviewed Other Results: Tele: avg HR=94 PAF. - EKG Interpretation EKG results cardiology: personally reviewed Consult Discharge Plan - Plan Referrals: Flakito Infante MD [Primary Care Provider] - 01/18/18 11:00 am (With Freida Perez CNP)
[2018-01-14] MEDS ORDERED: *HR* Promethazine 25 MG/ML VIAL IVP PRN (22:37)
[2018-01-15 05:26] LABS: Basophils % 0.5 %; Eosinophils # 0.2 K/mcL (0.0-0.6); Eosinophils % 2.7 %; Hematocrit 37.9 % (35.3-44.9); Hemoglobin 12.3 g/dL (11.5-15.4); Immature Granulocytes % 0.1 % (0-4); Lymphocytes % 41.6 %; Mean Corpuscular HGB Conc 32.5 g/dL (31.6-35.5); Mean Corpuscular Hemoglobin 27.5 pg (28.0-33.3); Mean Corpuscular Volume 84.8 fL (83.0-100.0); Mean Platelet Volume 9.5 fL (9.4-12.4); Monocytes # 0.6 K/mcL (0.0-1.3); Monocytes % 8.2 %; Neutrophils # 3.4 K/mcL (1.6-8.9); Platelet Count 356 K/mcL (140-400); Red Blood Count 4.47 M/mcL (3.82-4.97); Segmented Neutrophils % 46.9 %
[2018-01-15 06:05] LABS: BUN/Creatinine Ratio 22 (6-26); Blood Urea Nitrogen 15 mg/dL (8-23); Calcium 9.6 mg/dL (8.6-10.3); Carbon Dioxide 23 mEq/L (23-29); Chloride 110 mEq/L (98-107); Glucose 94 mg/dL (70-105); Magnesium 2.2 mg/dL (1.6-2.6); Osmolality,Calculated 293 (280-300); Potassium 3.9 mEq/L (3.5-5.1); Sodium 141 mEq/L (136-145); eGFR For African Americans > 60 (> 60); eGFR For Non-African Americans > 60 (> 60)
[2018-01-15] MEDS: *HR* Heparin 5,000 UNIT/ML VIAL SQ SCH ×2 (06:09→17:15)
[2018-01-15] MEDS: Vitamin B Complex/Vit C/Vit E 1 EACH TABLET PO SCH (09:04)
[2018-01-15] MEDS: Aspirin Enteric Coated 81 MG Tablet PO SCH (09:04)
[2018-01-15] MEDS: Cholecalciferol (D-3) 1,000 UNIT TABLET PO SCH (09:04)
[2018-01-15] MEDS: Diltiazem CD (24hr) 240 MG CAPSULE PO SCH (09:05)
--- NOTE | 2018-01-15 11:46 | Electrophysiology ProgressNote ---
Date of Encounter: 01/15/18 Time of Encounter: 11:30 Assessment and Plan (1) PAF (paroxysmal atrial fibrillation) Current Visit: Yes Status: Acute Hx of PAF, diagnosed 2016, pt. reports symptoms for at least 2 years. Has been on betablocker, now CCB. Presented with Afib with RVR, started on cardizem gtt, now NSR. Negative nuclear stress 12/27/16, normal LVEF per TTE 08/2017. Given recurrent admissions for PAF, and patient is symptomatic (fatigue), recommend antiarrhythmic therapy. Discussed with Dr. Rod Mcclain, will start Rythmol 150 mg Q8H. Will require inpatient monitoring for at least 5 doses--5th dose tonight at 2200. Continue CCB. Daily ECGs. Continuous telemetry monitoring. Baseline EC01/13/18 (afib) HR 148 QRS 116 ms QT/QTc 353,438 01/15/18 ECG: (SR) HR 66 QRS 90 ms QT/QTc 392,405 ms CHA2Ds Vasc=1 (female). Continue ASA for AC. Discussion w patient/family: The assessment and plan as outlined above was discussed with the patient and/or family members who expressed understanding and agreement. All questions were answered. Thank you for involving us in the care of your patient. Please call with any questions. The patient was discussed and reviewed with Dr. Rod Mcclain. Changes to be made accordingly. Subjective Principal diagnosis: PAF Interval history: Seen and examined. No palpitations/PAF overnight. Reports nausea yesterday evening, she believes it was related to food. Was given IV phenergan and feels drowsy this AM. Objective General: Conversant, No Apparent Distress HEENT: Atraumatic, Normocephaly, Mucus Membranes Moist Neck: No JVD, Normal carotid pulses Cardiac: Reg Rate and Rhythm, Normal S1 and S2, No Murmur Lungs: Normal Breath Sounds, No Wheeze, Rales, Rhonchi Neuro: Alert and responsive, No focal deficits noted Abdomen: Soft, Non-Tender Skin: No rashes noted on visualized skin Musculoskeletal: No Chest Wall Tenderness Extremities: No Clubbing, No Cyanosis, No Edema, Normal Pulses Results 01/15/18 04:26 01/15/18 04:26 Lab Results 01/15/18 01/15/18 04:26 04:26 WBC 7.3 Hgb 12.3 Hct 37.9 Plt Count 356 Sodium 141 Potassium 3.9 Chloride 110 H Carbon Dioxide 23 BUN 15 Creatinine 0.67 Glucose 94 Calcium 9.6 Magnesium 2.2 Active Medications Aspirin (Aspirin Ec) 81 mg PO DAILY [facility] Stop: 07/16/18 09:01 Last Admin: 01/15/18 09:04 Dose: 81 mg Calcium Carbonate (Tums) 1,000 mg PO Q4HR PRN; Protocol PRN Reason: Heartburn Stop: 07/16/18 17:08 Last Admin: 01/14/18 22:38 Dose: 1,000 mg Diltiazem HCl (Cardizem Cd) 240 mg PO DAILY [facility] Stop: 07/16/18 09:01 Last Admin: 01/15/18 09:05 Dose: 240 mg Heparin Sodium (Porcine) (Heparin) 5,000 unit SQ Q12HCO [facility] Stop: 07/16/18 06:01 Last Admin: 01/15/18 06:09 Dose: 5,000 unit Naloxone HCl (Narcan) 0.4 mg IVP Q2MIN PRN PRN Reason: SEE COMMENTS Stop: 07/15/18 21:00 Omeprazole (Prilosec) 40 mg PO DAILY [facility] Stop: 07/16/18 09:01 Last Admin: 01/15/18 09:05 Dose: 40 mg Promethazine HCl (Phenergan) 12.5 mg IVP Q6HR PRN PRN Reason: Nausea And Vomiting Stop: 07/16/18 22:38 Last Admin: 01/14/18 23:10 Dose: 12.5 mg Propafenone HCl (Rhythmol) 150 mg PO Q8H [facility] Stop: 07/16/18 14:01 Last Admin: 01/15/18 06:09 Dose: 150 mg Vitamin B Complex/Vit C/Vit E (Stresstab) 1 each PO DAILY [facility] Stop: 07/16/18 09:01 Last Admin: 01/15/18 09:04 Dose: 1 each Vitamin D (Vitamin D) 1,000 unit PO DAILY [facility] Stop: 07/16/18 09:01 Last Admin: 01/15/18 09:04 Dose: 1,000 unit Vitamin E (Vitamin E) 400 unit PO DAILY [facility] Stop: 07/16/18 09:01 Last Admin: 01/15/18 09:04 Dose: 400 unit - Imaging and Cardiology Stress Test: report reviewed Echo: report reviewed Other Results: 12 hour tele: avg HR=68 SR. No PAF noted. - EKG Interpretation EKG results cardiology: personally reviewed Consult Discharge Plan - Plan Referrals: Flakito Infante MD [Primary Care Provider] - 01/18/18 11:00 am (With Freida Perez CNP)
[2018-01-15] MEDS ORDERED: Ondansetron 4 MG/2 ML VIAL IVP PRN (12:18)
--- NOTE | 2018-01-15 13:34 | Internal Med Progress Note ---
Date of Encounter: 01/15/18 Time of Encounter: 13:32 - Assessment and plan (1) Atrial fibrillation with RVR Current Visit: Yes Status: Acute Assessment and plan: Has been started on Rythmol. Also on Cardizem. Electrophysiology is involved now. We will likely discharge tomorrow. Currently in sinus. Low [id number] score. Keep on ASA for now. L (2) GERD (gastroesophageal reflux disease) Current Visit: No Status: Chronic Assessment and plan: Continue PPI Qualifiers: Esophagitis presence: without esophagitis Qualified Code(s): K21.9 - Gastro -esophageal reflux disease without esophagitis (3) DVT prophylaxis Current Visit: Yes Status: Acute Assessment and plan: Heparin subcutaneous - Subjective Interval history: Patient was seen and examined. Simon and sinus. Admitted with atrial fibrillation with ventricular response yesterday. She was put on a Cardizem drip and converted to sinus. Patient has been dealing with A. fib on and off at home. Was recently hospitalized and discharged for similar reasons. 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 Has been afebrile. - Constitutional Vitals: Temp Pulse Resp BP Pulse Ox 98.6 F 68 16 117/53 98 01/15/18 12:09 01/15/18 12:09 01/15/18 12:09 01/15/18 12:09 01/15/18 12:09 General appearance: Present: A&O X 3, no acute distress, answers questions appropriately Exam: GEN: NAD CVS: RRR. S1, S2, No m/r/g RESP: CTAB ABD: Soft, NT, ND, +BS EXT: No edema. 2+ DP. No rashes NEURO: Nonfocal Internal Medicine: Result - Labs CBC & Chem 7: 01/15/18 04:26 01/15/18 04:26 Labs: Short CBC 01/15/18 Range/Units 04:26 WBC 7.3 (4.3-11.1) K/mcL Hgb 12.3 (11.5-15.4) g/dL Hct 37.9 (35.3-44.9) % Plt Count 356 (140-400) K/mcL Neutrophils # 3.4 (1.6-8.9) K/mcL BMP 01/15/18 04:26 Sodium 141 Potassium 3.9 Chloride 110 H Carbon Dioxide 23 BUN 15 Creatinine 0.67 Glucose 94 Calcium 9.6 - ABG Interpretation ABG results: PT/INR, D-dimer PT 10.4 Seconds (9.4-12.1) 01/13/18 16:55 Consult Discharge Plan - Plan Referrals: Flakito Infante MD [Primary Care Provider] - 01/18/18 11:00 am (With Freida Perez CNP)
[2018-01-16 04:00] LABS: Basophils # 0.1 K/mcL (0.0-0.2); Basophils % 0.7 %; Eosinophils # 0.2 K/mcL (0.0-0.6); Eosinophils % 2.2 %; Hematocrit 39.6 % (35.3-44.9); Hemoglobin 12.9 g/dL (11.5-15.4); Immature Granulocytes % 0.2 % (0-4); Lymphocytes # 3.3 K/mcL (0.6-4.6); Lymphocytes % 38.2 %; Mean Corpuscular HGB Conc 32.6 g/dL (31.6-35.5); Mean Corpuscular Hemoglobin 27.4 pg (28.0-33.3); Mean Corpuscular Volume 84.1 fL (83.0-100.0); Mean Platelet Volume 9.3 fL (9.4-12.4); Monocytes # 0.7 K/mcL (0.0-1.3); Monocytes % 7.6 %; Neutrophils # 4.5 K/mcL (1.6-8.9); Platelet Count 359 K/mcL (140-400); Red Blood Count 4.71 M/mcL (3.82-4.97); Red Cell Distribution Width 12.9 % (11.5-14.5); Segmented Neutrophils % 51.1 %
[2018-01-16 04:37] LABS: BUN/Creatinine Ratio 19 (6-26); Blood Urea Nitrogen 13 mg/dL (8-23); Calcium 9.4 mg/dL (8.6-10.3); Carbon Dioxide 24 mEq/L (23-29); Chloride 109 mEq/L (98-107); Glucose 88 mg/dL (70-105); Magnesium 2.1 mg/dL (1.6-2.6); Osmolality,Calculated 292 (280-300); Potassium 3.8 mEq/L (3.5-5.1); Sodium 141 mEq/L (136-145); eGFR For African Americans > 60 (> 60); eGFR For Non-African Americans > 60 (> 60)
[2018-01-16] MEDS: *HR* Heparin 5,000 UNIT/ML VIAL SQ SCH (05:43)
[2018-01-16] MEDS ORDERED: traMADol 50 MG TABLET PO PRN (06:14)
[2018-01-16] MEDS ORDERED: Ibuprofen 400 MG TABLET PO PRN (06:14)
[2018-01-16] MEDS ORDERED: Acetaminophen 325 MG TABLET PO PRN (06:14)
[2018-01-16] MEDS ORDERED: *HR* OxyCODONE Immed Rel 5 MG TABLET PO PRN (06:14)
[2018-01-16] MEDS ORDERED: *HR* LORazepam Oral Conc 2 MG/ML PO ONE (07:53)
[2018-01-16 09:43] LABS: % Iron Saturation 19 % (15-50); Creatine Kinase 39 Units/L (30-223); Ferritin 48 ng/ml (10-120); Iron 71 mcg/dL (50-170); Transferrin 267 mg/dL (203-362)
[2018-01-16] MEDS: Diltiazem CD (24hr) 240 MG CAPSULE PO SCH (09:43)
[2018-01-16] MEDS: Aspirin Enteric Coated 81 MG Tablet PO SCH (09:44)
[2018-01-16] MEDS: Cholecalciferol (D-3) 1,000 UNIT TABLET PO SCH (09:44)
[2018-01-16] MEDS: Vitamin B Complex/Vit C/Vit E 1 EACH TABLET PO SCH (09:44)
[2018-01-16 10:09] VITALS: BP 105/65
--- NOTE | 2018-01-16 11:08 | Cardiology Progress Note ---
Date of Encounter: 01/16/18 Time of Encounter: 11:06 Assessment and Plan (1) PAF (paroxysmal atrial fibrillation) Current Visit: Yes Status: Acute PAF. Loaded on Rhythmol. Mostly sinus rhythm, but brief periods of AF this morning. Sudden left groin pain and leg weakness. Venous u/s pending. CT head ordered to r/o neurological event given AF. If no significant findings on imaging, then okay to discharge on aspirin/ rhythmol/cardizem with outpatient followup. CHADS-VASc 1 (FM). We discussed options regarding AC. She understands and requests to remain on aspirin therapy. All questions answered. Discussion w patient/family: The assessment and plan as outlined above was discussed with the patient and/or family members who expressed understanding and agreement. All questions were answered. Thank you for involving us in the care of your patient. Please call with any questions. Subjective Principal diagnosis: PAF Interval history: Patient seen and examined. This is my first encounter. PAF - started on Rhythmol therapy. CHADS-VASc 1 (FM) - aspirin therapy has been decided. Overall, doing well the past few days in NSR. This morning, developed sudden left leg pain and weakness, unable to brain picker her leg. Reports pain at groin site, which has subsided. Subsequently developed AF with RVR. Given cardizem IV 10 mg x1, HR improved, converted back to NSR. Objective Vital Signs, Last 4 Hours Temp Pulse Resp BP Pulse Ox 01/16/18 10:03 98.2 F 59 14 105/65 94 General: Conversant, No Apparent Distress, Other (somewhat anxious) HEENT: Atraumatic, Normocephaly, Mucus Membranes Moist Neck: No JVD, Normal carotid pulses Cardiac: Reg Rate and Rhythm, Normal S1 and S2, No Murmur Lungs: Normal Breath Sounds, No Wheeze, Rales, Rhonchi Neuro: Alert and responsive, No focal deficits noted Abdomen: Soft, Non-Tender Skin: No rashes noted on visualized skin Musculoskeletal: No Chest Wall Tenderness Extremities: No Clubbing, No Cyanosis, No Edema Results 01/16/18 03:14 01/16/18 03:14 Lab Results 01/16/18 01/16/18 03:14 03:14 WBC 8.7 Hgb 12.9 Hct 39.6 Plt Count 359 Sodium 141 Potassium 3.8 Chloride 109 H Carbon Dioxide 24 BUN 13 Creatinine 0.68 Glucose 88 Calcium 9.4 Magnesium 2.1 - Imaging and Cardiology Echo: report reviewed Cardiac cath: report reviewed - EKG Interpretation EKG results cardiology: personally reviewed Consult Discharge Plan - Plan Referrals: Flakito Infante MD [Primary Care Provider] - 01/18/18 11:00 am (With Freida Perez CNP)
--- NOTE | 2018-01-16 13:22 | Discharge Summary ---
Date of Encounter: 01/16/18 Time of Encounter: 13:20 - Discharge Diagnosis (1) Atrial fibrillation with RVR Priority: Primary Status: Acute (2) GERD (gastroesophageal reflux disease) Priority: Secondary Status: Chronic Qualifiers: Esophagitis presence: without esophagitis Qualified Code(s): K21.9 - Gastro -esophageal reflux disease without esophagitis - Discharge Medications Prescriptions: Propafenone [Rhythmol] 150 mg PO Q8H #90 tablet Home Medications: Alendronate Sodium 70 mg PO TU 12/25/17 [History] Omeprazole [PriLOSEC] 40 mg PO DAILY 12/25/17 [History] Aspirin Enteric Coated [Aspirin EC] 81 mg PO DAILY #30 tablet.dr 12/26/17 [Rx] Diltiazem HCl [Diltiazem ER] 240 mg PO DAILY #30 cap.er.deg 12/26/17 [Rx] Cholecalciferol (D-3) [Vitamin D] 2,000 unit PO DAILY 01/13/18 [History] Vitamin B Complex [B Complex] 1 each PO DAILY 01/13/18 [History] Vitamin E Acid Succinate [Vitamin E] 400 unit PO DAILY 01/13/18 [History] Propafenone [Rhythmol] 150 mg PO Q8H #90 tablet 01/16/18 [Rx] Allergies/Adverse Reactions: 3 Allergy/AdvReac Type Severity Reaction Status Date / Time No Known Allergies Allergy Verified 01/13/18 16:24 Procedures/tests Complete & Pending: Procedures Performed prior 72 hours Category Date Time Status CT head/brain wo con [CT] Routine Cat Scan 01/16/18 13:00 Ordered ECG 12 lead ECG [ECG] AM 0600 Y 01/15/18 06:00 Completed ECG 12 lead ECG [ECG] AM 0600 Y 01/16/18 06:00 Ordered ECG 12 lead ECG [ECG] AM 0600 Y 01/17/18 06:00 Ordered EKG [ECG 12 lead ECG] [ECG] Stat Y 01/16/18 07:57 Ordered Venous Ultrasound [EV venous imaging LE LT] Stat Y 01/16/18 05:50 Completed Date of admission: 01/14/18 02:54 Primary care physician: Flakito Infante MD Consults: 01/14/18 11:23 Consult to Electrophysiology (EP) [CONS] Routine Consulting Provider: Electrophysiology Cortez Reason for Consult: a.fib Call Completed: Yes - Patient Status Disposition: Home, Self-Care Condition: Fair Overall status at discharge: patient is progressing back to baseline - Discharge Instructions Instructions: Propafenone (By mouth), Atrial Fibrillation (DC) Follow Up With: Flakito Infante MD [Primary Care Provider] - 01/18/18 11:00 am (With Freida Perez [facility]) Vern Yap DO [Partnered Physician] - (2 weeks) - Diet and Activity Activity: increase activity as tolerated Diet: regular diet Hospital course: Ms. Nuno is a 62 year old female with hx of PAF presented to ER for palpitation. Pt has symptomatic A Fib and she knows that she has A Fib again. Pt follows up with Dr Mcclain as outpatient. Has had palpitation for a couple of days prior to admission. Pt was seen in Dr Mcclain's office and was advised to come to ER. In ER, EKG show A Flutter with HR 159. Pt was started cardizem drip and was admitted for further management. Was seen by cardiology and started on Rythmol. She was kept in the hospital 3 days with no issues. Advised patient complained of left leg weakness that was sudden in the groin area. We got an ultrasound which was negative for any clots. Given A. fib were worried by the CVA event and a CT head was negative. She was discharged after that on 2017 with follow-up recommended with cardiology and her primary care physician. - Time Spent with Patient Total time spent providing and/or coordinating discharge services: Greater than 30 minutes - Constitutional Vitals: Temp Pulse Resp BP Pulse Ox 98.2 F 59 14 105/65 94 01/16/18 10:03 01/16/18 10:03 01/16/18 10:03 01/16/18 10:03 01/16/18 10:03 General appearance: Present: A&O X 3, no acute distress, answers questions appropriately Exam: GEN: NAD CVS: RRR. S1, S2, No m/r/g RESP: CTAB ABD: Soft, NT, ND, +BS EXT: No edema. 2+ DP. No rashes NEURO: Nonfocal
--- NOTE | 2018-01-17 11:03 | Electrocardiograph Report ---
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
[2018-01-19] MEDS ORDERED: NON-FORMULARY MEDICATION 1 EACH EACH (Alendronate Sodium [Alendronate Sodium] 70 MG) PO SCH (21:04)
--- NOTE | 2018-01-20 01:57 | Electrocardiograph Report ---
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
--- NOTE | 2018-01-22 07:55 | Electrocardiograph Report ---
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
--- NOTE | 2018-01-22 07:56 | Electrocardiograph Report ---
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
== END 2018-01-16 15:19 | disposition home or self-care (01) | DRG 310 ==
LOC: 2ANU 16:20 → EMEROO 16:20 → 2ANU 21:17
PROVIDERS: ADMIT Nurse Practitioner Family; ATTEND Registered Nurse